=== PATIENT | male | born 1975 | race Caucasian/White ===

== ENCOUNTER → 2025-07-05 | Day surgery (SDC) | payer BC ==
[~2025-07-05] MED LIST: HYOSCYAMINE SULFATE 0.5 MG/ML INJ ONE; LIDOCAINE HCL 2% LOCAL INJ 5 ML SDV VIAL INJ ONE; MULTI-VITAMIN1 EACH PO; PROPOFOL IV EMULSION 10 MG/ML 20 ML VIAL ONE; PROPOFOL IV EMULSION 50 ML IV ONE
[2025-07-05] MEDS: LACTATED RINGER'S 1,000 ML ONE (06:27)
[2025-07-05 07:45] VITALS: TEMP 98.6
[2025-07-05 08:00] VITALS: BP 135/85; PULSE 81; RESP 15; O2SAT 96
== END | disposition home or self-care (01) ==
LOC: OR 05:26
PROVIDERS: ATTEND Internal Medicine Gastroenterology
DX: Z12.11 Encounter for screening for malignant neoplasm of colon (principal); D12.0 Benign neoplasm of cecum; D12.8 Benign neoplasm of rectum; K64.8 Other hemorrhoids; E66.812 Obesity, class 2; Z68.39 Body mass index [BMI] 39.0-39.9, adult; G47.33 Obstructive sleep apnea (adult) (pediatric); Z01.810 Encounter for preprocedural cardiovascular examination
CPT/HCPCS: 45385; 93005; J1980; J2003; J2704 ×2; J7121; 45378